=== PATIENT | female | born 1980 ===

== ENCOUNTER 2017-02-04 10:47 | Emergency (ER) | payer MEDICAID ==
[2017-02-04 10:55] VITALS: O2SAT 100
[2017-02-04 11:46] LABS: RBC URINE 2 /hpf (0-3); URINE BILIRUBIN NEGATIVE (NEGATIVE); URINE BLOOD NEGATIVE (NEGATIVE); URINE COLOR Yellow (YELLOW); URINE GLUCOSE (UA) NORMAL (Normal); URINE KETONE NEGATIVE (NEGATIVE); URINE LEUKOCYTE ESTERASE NEG Leu/uL (Negative); URINE PROTEIN NEGATIVE (NEGATIVE); URINE UROBILINOGEN NORMAL mg/dL (0.2-1.0); WBC URINE < 1 /hpf (0-5)
--- NOTE | 2017-02-04 11:48 | C.PDOC ---
History Of Present Illness <Stefani Leiva - Last Filed: 02/04/17 11:48> <Allyson Ayon - Last Filed: 02/04/17 16:05> 36 y/o female presents to ED for evaluation of left sided back pain radiating to the abdomen for the last 5 days. Pt reports having similar symptoms (GianaronnieAllyson) <Stefani Leiva - Last Filed: 02/04/17 11:48> <Allyson Ayon - Last Filed: 02/04/17 16:05> Time Seen by Provider: 02/04/17 11:16 Chief Complaint (Nursing): Female Genitourinary Past Medical History - Social History Hx Tobacco Use: No Hx Alcohol Use: Yes (Rarely) Hx Substance Use: No - Immunization History Hx Tetanus Toxoid Vaccination: No Hx Influenza Vaccination: No Hx Pneumococcal Vaccination: No <Stefani Leiva - Last Filed: 02/04/17 11:48> ED Course And Treatment O2 Sat by Pulse Oximetry: 100 <Stefani Leiva - Last Filed: 02/04/17 11:48> - Laboratory Results Result Diagrams: 02/04/17 12:53 02/04/17 12:53 <Allyson Ayon - Last Filed: 02/04/17 16:05> Disposition <Stefani Leiva - Last Filed: 02/04/17 11:48> <Allyson Ayon - Last Filed: 02/04/17 16:05> - Disposition Forms: [facility] (Andorran) <Stefani Leiva - Last Filed: 02/04/17 11:48> - 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 - Scribe Statement The provider has reviewed the documentation as recorded by the Scribe <Allyson Ayon - Last Filed: 02/04/17 16:05> - Scribe Statement Adrian Clark All medical record entries made by the Scribe were at my direction and personally dictated by me. I have reviewed the chart and agree that the record accurately reflects my personal performance of the history, physical exam, medical decision making, and the department course for this patient. I have also personally directed, reviewed, and agree with the discharge instructions and disposition. (Allyson Ayon)
[2017-02-04] MEDS ORDERED: Sodium Chloride 0.9% 1,000 ML IV ONE (12:32)
[2017-02-04] MEDS ORDERED: Sodium Chloride 0.9% 1,000 ML ONE (12:49)
[2017-02-04 13:01] LABS: BASO % 0.5 % (0.0-2.0); EOS # 0.1 K/uL (0.0-0.7); EOS % 0.8 % (0.0-4.0); HEMATOCRIT 36.1 % (34.0-47.0); LYMPH # 1.9 K/uL (1.0-4.3); LYMPH % 28.4 % (20.0-40.0); MEAN CELL VOLUME 92.2 fL (81.0-99.0); MEAN CORPUSCULAR HEMOGLOBIN 30.3 pg (27.0-31.0); MEAN CORPUSCULAR HGB CONC 32.9 g/dL (33.0-37.0); MEAN PLATELET VOLUME 10.4 fL (7.2-11.7); MONO # 0.8 K/uL (0.0-0.8); MONO % 12.3 % (0.0-10.0); WHITE BLOOD COUNT 6.5 K/uL (4.8-10.8)
[2017-02-04 13:13] LABS: ALB/GLOB RATIO 1.2 (1.0-2.1); ALKALINE PHOSPHATASE 89 U/L (38-126); ALT/SGPT 27 U/L (9-52); AST/SGOT 24 U/L (14-36); BILIRUBIN,TOTAL 0.7 mg/dL (0.2-1.3); BLOOD UREA NITROGEN 15 mg/dL (7-17); CALCIUM 9.2 mg/dl (8.6-10.4); CARBON DIOXIDE 26 mmol/L (22-30); CHLORIDE 99 mmol/L (98-107); GFR AFRICAN-AMERICAN > 60; GLUCOSE,RANDOM 79 mg/dL (65-105); POTASSIUM 4.1 mmol/L (3.6-5.2); SODIUM 139 mmol/L (132-148); TOTAL PROTEIN 7.9 g/dL (6.3-8.3)
[2017-02-04 13:15] VITALS: TEMP 98.2
--- NOTE | 2017-02-04 13:23 | CT ---
PROCEDURE: CT Abdomen and Pelvis without Oral or IV contrast. HISTORY: Pain COMPARISON: None available. TECHNIQUE: Contiguous axial images of the abdomen and pelvis. No oral or IV contrast administered. Coronal and Sagittal reformats generated and reviewed. Radiation dose: Total exam DLP = 348.60 mGy-cm. This CT exam was performed using one or more of the following dose reduction techniques: Automated exposure control, adjustment of the mA and/or kV according to patient size, and/or use of iterative reconstruction technique. FINDINGS: There is limited evaluation of the solid organs without the administration of IV contrast. LOWER THORAX: No visible consolidation, pleural effusion, or pneumothorax. LIVER: Unremarkable unenhanced appearance. GALLBLADDER AND BILE DUCTS: Unremarkable unenhanced appearance. PANCREAS: Unremarkable unenhanced appearance. SPLEEN: Unremarkable unenhanced appearance. ADRENALS: Unremarkable unenhanced appearance. KIDNEYS AND URETERS: No hydronephrosis or obstructing renal calculus. BLADDER: The urinary bladder appears unremarkable. REPRODUCTIVE: Uterus is present with prominent appearing lower uterine segment ; recommend pelvic ultrasound for further evaluation. APPENDIX: The visualized portions of the appendix appear within normal limits of caliber. No secondary signs of acute appendicitis. BOWEL: The stomach is nondistended. Lack of oral contrast limits evaluation for bowel pathology. The bowel loops appear within normal limits of caliber without evidence of intestinal obstruction. Moderate constipation. PERITONEUM: No significant free fluid. No definite free air. LYMPH NODES: No bulky lymphadenopathy identified. VASCULATURE: No aortic aneurysm. BONES: No acute osseous abnormality is detected. OTHER FINDINGS: None. IMPRESSION: Moderate constipation. Uterus is present with prominent appearing lower uterine segment ; recommend pelvic ultrasound for further evaluation.
--- NOTE | 2017-02-04 15:57 | US ---
HISTORY: pain COMPARISON: None available. TECHNIQUE: Real-time transabdominal pelvic ultrasound was performed. In addition a transvaginal pelvic ultrasound was necessary to better depict pelvic anatomy. FINDINGS: UTERUS: Measures 10.1 x 4.8 x 6.4 cm. Anteverted. ENDOMETRIUM: Measures 1.5 cm in diameter. A heterogeneous in echotexture. CERVIX: Cervix length measures approximately 3.8 cm. RIGHT OVARY: Measures 3.6 x 2.6 x 2.8 cm. Blood flow is demonstrated. 1.4 x 1.1 x 1.3 cm right ovarian cyst. LEFT OVARY: Measures 3.9 x 1.8 x 2.6 cm. Blood flow is demonstrated. FREE FLUID: Small pelvic free fluid. OTHER FINDINGS: None. IMPRESSION: Heterogeneous endometrium appears top normal in diameter. Correlate with stage of menstrual cycle. Correlate clinically and recommend follow-up as indicated. 1.4 cm right ovarian cyst. Small pelvic free fluid.
[2017-02-04 16:02] VITALS: BP 107/64; PULSE 54; RESP 20
--- NOTE | 2017-02-04 16:32 | C.PDOC ---
History Of Present Illness 36 y/o female presents to ED for evaluation of left sided back pain radiating to the abdomen for the last 5 days. (+) dysuria (+) urinary frequency. Pt reports being seen at [facility] for similar symptoms 2 months ago and was diagnosed with UTI at that time. Pt states symptoms had improved at that time, but have now returned. Denies fever, chills, vaginal discharge, or any other associated symptoms at this time. Time Seen by Provider: 02/04/17 11:16 Chief Complaint (Nursing): Female Genitourinary History Per: Patient History/Exam Limitations: language barrier (social services specialist used) Onset/Duration Of Symptoms: Days (5) Current Symptoms Are (Timing): Still Present Quality Of Discomfort: "Pain" Previous Symptoms: Back Pain Associated Symptoms: None. denies: Incontinence, New Weakness, New Numbness Exacerbating Factor(s): Nothing Recent travel outside of the [place]: No Additional History Per: Patient Past Medical History Reviewed: Historical Data, Nursing Documentation, Vital Signs Vital Signs: Last Vital Signs Temp 98.2 F 02/04/17 13:10 Pulse 54 L 02/04/17 16:00 Resp 20 02/04/17 16:00 BP 107/64 02/04/17 16:00 Pulse Ox 100 02/04/17 18:26 - Medical History PMH: No Chronic Diseases Family History: States: No Known Family Hx - Social History Hx Tobacco Use: No Hx Alcohol Use: Yes (Rarely) Hx Substance Use: No - Immunization History Hx Tetanus Toxoid Vaccination: No Hx Influenza Vaccination: No Hx Pneumococcal Vaccination: No Review Of Systems Except As Marked, All Systems Reviewed And Found Negative. Constitutional: Negative for: Fever, Chills Gastrointestinal: Positive for: Abdominal Pain. Negative for: Nausea, Vomiting Genitourinary: Positive for: Dysuria, Frequency. Negative for: Hematuria, Vaginal Discharge Musculoskeletal: Positive for: Back Pain (left side) Neurological: Negative for: Weakness, Numbness Physical Exam - Physical Exam Appears: Non-toxic, No Acute Distress Skin: Normal Color, Warm, Dry Head: Atraumatic, Normacephalic Eye(s): bilateral: Normal Inspection Nose: Normal Oral Mucosa: Moist Neck: Normal ROM Chest: Symmetrical Cardiovascular: Rhythm Regular, No Murmur Respiratory: Normal Breath Sounds, No Rales, No Rhonchi, No Wheezing Gastrointestinal/Abdominal: Soft, Tenderness (suprapubic), No Guarding, No Rebound Back: No CVA Tenderness, No Vertebral Tenderness, Paraspinal Tenderness ( bilateral paralumbar) Extremity: Normal ROM Neurological/Psych: Oriented x3, Normal Speech ED Course And Treatment - Laboratory Results Result Diagrams: 02/04/17 12:53 02/04/17 12:53 O2 Sat by Pulse Oximetry: 100 (on RA) Pulse Ox Interpretation: Normal - CT Scan/US Abd & pelvis CT Other Rad Studies (CT/US): Read By Radiologist, Radiology Report Reviewed CT/US Interpretation: PROCEDURE: CT Abdomen and Pelvis without Oral or IV contrast. HISTORY: Pain. COMPARISON: None available. TECHNIQUE: Contiguous axial images of the abdomen and pelvis. No oral or IV contrast administered. Coronal and Sagittal reformats generated and reviewed. Radiation dose: Total exam DLP = 348.60 mGy-cm. This CT exam was performed using one or more of the following dose reduction techniques: Automated exposure control, adjustment of the mA and/or kV according to patient size, and/or use of iterative reconstruction technique. FINDINGS: There is limited evaluation of the solid organs without the administration of IV contrast. LOWER THORAX: No visible consolidation, pleural effusion, or pneumothorax. LIVER: Unremarkable unenhanced appearance. GALLBLADDER AND BILE DUCTS: Unremarkable unenhanced appearance. PANCREAS: Unremarkable unenhanced appearance. SPLEEN: Unremarkable unenhanced appearance. ADRENALS: Unremarkable unenhanced appearance. KIDNEYS AND URETERS: No hydronephrosis or obstructing renal calculus. BLADDER: The urinary bladder appears unremarkable. REPRODUCTIVE: Uterus is present with prominent appearing lower uterine segment ; recommend pelvic ultrasound for further evaluation. APPENDIX: The visualized portions of the appendix appear within normal limits of caliber. No secondary signs of acute appendicitis. BOWEL: The stomach is nondistended. Lack of oral contrast limits evaluation for bowel pathology. The bowel loops appear within normal limits of caliber without evidence of intestinal obstruction. Moderate constipation. PERITONEUM: No significant free fluid. No definite free air. LYMPH NODES: No bulky lymphadenopathy identified. VASCULATURE: No aortic aneurysm. BONES: No acute osseous abnormality is detected. OTHER FINDINGS: None. IMPRESSION: Moderate constipation. Uterus is present with prominent appearing lower uterine segment ; recommend pelvic ultrasound for further evaluation. Pelvis US Other Rad Studies (CT/US): Read By Radiologist, Radiology Report Reviewed CT/US Interpretation: HISTORY: pain. COMPARISON: None available. TECHNIQUE: Real-time transabdominal pelvic ultrasound was performed. In addition a transvaginal pelvic ultrasound was necessary to better depict pelvic anatomy. FINDINGS: UTERUS: Measures 10.1 x 4.8 x 6.4 cm. Anteverted. ENDOMETRIUM: Measures 1.5 cm in diameter. A heterogeneous in echotexture. CERVIX: Cervix length measures approximately 3.8 cm. RIGHT OVARY: Measures 3.6 x 2.6 x 2.8 cm. Blood flow is demonstrated. 1.4 x 1.1 x 1.3 cm right ovarian cyst. LEFT OVARY: Measures 3.9 x 1.8 x 2.6 cm. Blood flow is demonstrated. FREE FLUID: Small pelvic free fluid. OTHER FINDINGS: None. IMPRESSION: Heterogeneous endometrium appears top normal in diameter. Correlate with stage of menstrual cycle. Correlate clinically and recommend follow-up as indicated. 1.4 cm right ovarian cyst. Small pelvic free fluid. Progress Note: Blood work, UA, pelvis ultrasound, Abd & pelvis CT ordered and reviewed. Pt was given IV fluids, and Toradol. On reassessment, patient is resting comfortably, reports improvement of back pain. No fever, no bony tenderness, no numbness, no weakness, or abdominal pain. Patient is ambulatory in the emergency department with no signs of discomfort. Patient was advised to follow up with their physician in 1-2 days. Copies of results given, social services specialist used to ensure understanding. Case discussed with Dr Liao, agreed upon plan and treatment. Disposition - Disposition Disposition: HOME/ ROUTINE Disposition Time: 16:00 Condition: STABLE Additional Instructions: Vaya a wiley mdico o la clnica en 2-5 abbott sin falta, para mas evaluacin. Baxter los medicamentos ephraim indicado. Volver a la priyanka de emergencia en cualquier momento si los sntomas persisten o empeoran. Prescriptions: Cyclobenzaprine [Cyclobenzaprine HCl] 10 mg PO TID #20 tab Phenazopyridine HCl [Pyridium] 100 mg PO TID #6 tablet Instructions: Acute Low Back Pain (ED) Forms: Work/School/Gym Excuse, [facility] (Micronesian) Print Language: ITALIAN - Clinical Impression Clinical Impression: Low back pain, Urinary frequency - PA / PIECE CUTTER / Resident Statement MD/DO has reviewed & agrees with the documentation as recorded. - Scribe Statement The provider has reviewed the documentation as recorded by the Scribe Adrian Clark All medical record entries made by the Meghanibjustin were at my direction and personally dictated by me. I have reviewed the chart and agree that the record accurately reflects my personal performance of the history, physical exam, medical decision making, and the department course for this patient. I have also personally directed, reviewed, and agree with the discharge instructions and disposition.
== END 2017-02-04 17:07 | disposition home or self-care (01) ==
LOC: C.ER 10:47
DX: R35.0 Frequency of micturition (principal); M54.5 Low back pain
CPT/HCPCS: 74176; 76830; 76856; 80053; 81001; 83690; 84703; 85025; 87086; 96361; 96374; 99285; J1885; J7040